=== PATIENT | male | born 1955 | race Caucasian/White ===

== ENCOUNTER → 2021-12-13 | Outpatient (CLI) | payer MEDICARE ==
[2016-06-04 21:30] VITALS: BP 171/85
[~2021-12-13] MED LIST: CIPR10DR AD; Oxycodone Hcl/Acetaminophen PO
--- NOTE | 2021-12-13 17:39 | KCIC ---
XR SHOULDER_RIGHT 2+ VIEWS, XR HUMERUS_RT 2 VIEWS Clinical Indication: Reason: / Spl. Instructions: RIGHT SHOULDER PAIN, FELT POP IN SHOULDER 1-2 WEEK S AGO / History: Comparison: None. Findings: There is no acute fracture of the humerus. No obvious deformity of the elbow joint. There is no soft tissue swelling. There is no acute fracture or dislocation of the shoulder. There is mild arthropathy. There is a tiny calcified granuloma in the right midlung. No acute right rib abnormality is seen. Soft tissues unrem arkable. IMPRESSION: No acute fracture or dislocation. Electronically signed by: Isma Juares MD (12/13/2021 5:36 PM) [id number]
== END ==
LOC: KCIC 12:29
PROVIDERS: ATTEND Family Medicine
DX: S49.91XA Unspecified injury of right shoulder and upper arm, initial encounter (principal); S46.201A Unspecified injury of muscle, fascia and tendon of other parts of biceps, right arm, initial encounter; M19.011 Primary osteoarthritis, right shoulder; J84.10 Pulmonary fibrosis, unspecified; X58.XXXA Exposure to other specified factors, initial encounter; Y93.89 Activity, other specified; Y92.89 Other specified places as the place of occurrence of the external cause; Y99.8 Other external cause status
CPT/HCPCS: 73030; 73060